=== PATIENT | female | born 2000 | race African-American/Black ===

== ENCOUNTER 2019-04-13 13:12 | Emergency (ER) | payer OTHER, SELFPAY ==
[2019-04-13 13:46] LABS: Bilirubin Negative (Negative); Blood, Urine Negative (Negative); Clarity Clear (Clear); Glucose, Urine (Dipstick) Negative (Negative); Leukocyte Trace (Negative); Nitrite Negative (Negative); Protein, Urine (Dipstick) Trace mg/dL (Neg-Trace)
[2019-04-13 13:55] LABS: Pregnancy Test - Urine (BHCG) Negative (Negative)
[2019-04-13 13:56] LABS: Pregu Control Background? CLEAR/WHITE (CLR/WHITE); Pregu Control Bar Appear? YES (CONTROL BAR)
[2019-04-13 13:58] LABS: Bacteria/HPF Rare-Few HPF (None Seen); RBC/HPF 0-3 HPF (0-3); Squamous Epithelial 0-3 HPF (0-3); WBC/HPF 0-3 HPF (0-3)
[2019-04-16 20:47] LABS: Chlam.trachomatis by PCR,Urine Not Detected (NotDetected)
== END 2019-04-13 14:40 | disposition home or self-care (01) ==
LOC: MADERS 13:12
DX: B37.3 Candidiasis of vulva and vagina (principal)
CPT/HCPCS: 81003; 81015; 81025; 87491; 87591; 99283

== ENCOUNTER 2019-09-02 14:45 | Emergency (ER) | payer MEDICAID ==
[2019-09-02 15:26] LABS: Bilirubin Negative (Negative); Blood, Urine Small (Negative); Glucose, Urine (Dipstick) Negative (Negative); Leukocyte Trace (Negative); Nitrite Negative (Negative); Protein, Urine (Dipstick) Negative (Neg-Trace)
[2019-09-02 15:28] LABS: Clarity Hazy (Clear)
[2019-09-02 15:29] LABS: Bacteria/HPF 2+ HPF (None Seen)
[2019-09-02 15:33] LABS: Pregnancy Test - Urine (BHCG) Negative (Negative); Pregu Control Background? CLEAR/WHITE (CLR/WHITE); Pregu Control Bar Appear? YES (CONTROL BAR)
== END 2019-09-02 15:57 | disposition home or self-care (01) ==
LOC: MADERS 14:45
DX: N39.0 Urinary tract infection, site not specified (principal)
CPT/HCPCS: 81003; 81015; 81025; 99283

== ENCOUNTER 2019-09-14 19:05 | Emergency (ER) | payer MEDICAID ==
[2019-09-14 20:07] LABS: Bilirubin Negative (Negative); Blood, Urine Large (Negative); Clarity Cloudy (Clear); Glucose, Urine (Dipstick) Negative (Negative); Leukocyte Large (Negative); Nitrite Positive (Negative); Protein, Urine (Dipstick) Trace mg/dL (Neg-Trace); Urobilinogen 0.2 mg/dL (Less than 2)
[2019-09-14 20:11] LABS: Pregnancy Test - Urine (BHCG) Negative (Negative); Pregu Control Background? CLEAR/WHITE (CLR/WHITE); Pregu Control Bar Appear? YES (CONTROL BAR); Specific Gravity 1.025 (1.002-1.036)
[2019-09-14] MEDS ORDERED: cefTRIAXone\\ROCEPHIN 1 GM VIAL ONE (20:11)
[2019-09-14] MEDS ORDERED: Lidocaine 1% 20 ML MDV ONE (20:13)
[2019-09-14 20:20] LABS: Bacteria/HPF 4+ HPF (None Seen); RBC/HPF Greater than 50 HPF (0-3); WBC/HPF 21-50 HPF (0-3)
== END 2019-09-14 20:45 | disposition home or self-care (01) ==
LOC: MADERS 19:05
DX: N39.0 Urinary tract infection, site not specified (principal)
CPT/HCPCS: 81003; 81015; 81025; 96372; 99283; J0696; J2001

== ENCOUNTER 2019-11-04 08:26 | Emergency (ER) | payer MEDICAID | END 2019-11-04 09:45 | disposition home or self-care (01) | LOC: MADERS 08:26 | DX: J06.9 Acute upper respiratory infection, unspecified (principal) | CPT/HCPCS: 87804; 99283 ==

== ENCOUNTER 2021-12-16 12:48 | Emergency (ER) | payer BC, OTHER ==
[2021-12-16] MEDS ORDERED: cefTRIAXone\\ROCEPHIN 500 MG VIAL ONE (13:28)
[2021-12-16 13:42] LABS: Pregnancy Test - Urine (BHCG) Negative (Negative); Pregu Control Background? CLEAR/WHITE (CLR/WHITE); Pregu Control Bar Appear? YES (CONTROL BAR)
== END 2021-12-16 14:30 | disposition home or self-care (01) ==
LOC: MADERS 12:48
DX: N93.9 Abnormal uterine and vaginal bleeding, unspecified (principal)
CPT/HCPCS: 81025; 87491; 87591; 96372; 99284; J0696